=== PATIENT | female | born 1945 | race Caucasian/White ===

== ENCOUNTER 2016-12-31 10:37 | Outpatient (CLI) | payer MEDICARE ==
[2016-12-31] VITALS (22 sets, daily range): BP systolic 91–154; BP diastolic 46–84; PULSE 81–93; RESP 10–20; TEMP 97.5–98.2; O2SAT 89–100; Ht 152.4 cm; Wt 71.0 kg
[~2016-12-31] VITALS: Ht 152.4 cm; Wt 71.0 kg
[~2016-12-31 10:37] MED LIST: ALPR0.5T8 PO; ANTI1CAP5 PO; BISO1TAB4 PO; DULO60CA56 PO; DiphenhydrAMINE 50 MG/ML INJECTION IV ONE; FLUT1AER ORAL INH; FURO40TA5 PO; HYDR-3995 PO; LANS30CA58 PO; NITR100C9 PO; NORMAL SALINE 1,000 ML IV ONE; PIOG30TA2 PO; QUIN324C PO; SPIR50TA3 PO; TIOT18CA3 INH
--- NOTE | 2016-12-31 11:03 | NUR ---
ADMIT PT ADMITTED TO ROOM 124 AT THIS TIME VIA AMBULATORY STATUS. PT REPOSITIONED SELF TO A DANGLING POSITION ON THE SIDE OF THE BED DUE TO CYST ON SPINAL CORD CAUSING SCIATIC NERVE PAIN. PT ALERT AND ORIENTED. VITAL SIGNS STABLE ON ROOM AIR. ESTELLA PRESENT UPON ADMIT. WILL CONTINUE TO MONITOR.
[2016-12-31 11:57] LABS: BASOPHILS % (AUTO) 0.4 % (0-2); EOSINOPHILS # (AUTO) 0.1 T/MM3 (0-0.5); EOSINOPHILS % (AUTO) 1.3 % (0-4); HCT - HEMATOCRIT 44.2 % (36-46); HGB - HEMOGLOBIN 14.7 GM/DL (12-16); IMMATURE GRANULOCYTE # (AUTO) 0.01 T/MM3 (0.00-0.03); IMMATURE GRANULOCYTE % (AUTO) 0.1 % (0.0-0.5); LYMPHOCYTES # (AUTO) 1.7 T/MM3 (1-4.8); LYMPHOCYTES % (AUTO) 19.2 % (23-45); MEAN CORPUSCULAR HGB 28.6 UUG (26-34); MEAN CORPUSCULAR HGB CONC(MCHC 33.3 GM/DL (31-37); MEAN PLATELET VOLUME 11.2 UM3 (9.4-12.4); MONOCYTES # (AUTO) 1.1 T/MM3 (0-0.8); MONOCYTES % (AUTO) 12.1 % (0-9.0); NEUTROPHILS % (AUTO) 66.9 % (33-66); RED BLOOD COUNT 5.14 M/MM3 (4.00-5.20)
[2016-12-31 12:02] LABS: INR 0.96 (0.76-1.04); PROTHROMBIN TIME 10.5 SEC (9.31-12.49)
[2016-12-31 12:07] LABS: ALBUMIN 4.3 G/DL (3.5-5.0); ALBUMIN/GLOBULIN RATIO 1.5 RATIO (1.1-2.2); ALKALINE PHOSPHATASE 131 U/L (38-126); ALT (SGPT) 32 U/L (9-52); ANION GAP 10 MEQ/L (5-15); AST (SGOT) 42 U/L (14-36); BUN/CREATININE RATIO 23 RATIO (6-26); CALCIUM 11.6 MG/DL (8.4-10.2); CHLORIDE 99 MEQ/L (98-107); CO2 - CARBON DIOXIDE 27 MEQ/L (22-30); CREATININE 1.2 MG/DL (0.7-1.2); GLOMERULAR FILTRATION RATE 44; GLUCOSE 125 MG/DL (65-110); POTASSIUM 4.4 MEQ/L (3.6-5); SODIUM 136 MEQ/L (134-144); TOTAL PROTEIN 7.2 G/DL (6.3-8.2)
[2016-12-31] MEDS ORDERED: ASPI81TA2 PO (12:09)
[2016-12-31] MEDS ORDERED: LORAZEPAM 2 MG/ML INJECTION IV ONE (13:15)
[2016-12-31] MEDS ORDERED: KETOROLAC 30mg/ml INJECTION IV ONE (13:30)
[2016-12-31] MEDS ORDERED: PROPOFOL 500mg 50 ML IV ONE (14:36)
--- NOTE | 2016-12-31 14:58 | NUR ---
DANA CORTEZ VISITED PT. CM EXPLAINED ROLE A ND PROVIDED CONTACT INFORMATION. PT DENIES NEEDS. PT PLANS [place] [facility] [place] IS AWARE TO CONTACT CM IF NEEDS ARISE.
--- NOTE | 2016-12-31 15:00 | NUR ---
TO HAND CIGAR MAKING SUPERVISOR PATIENT TAKEN TO HAND CIGAR MAKING SUPERVISOR AT THIS TIME VIA CART AND HAND CIGAR MAKING SUPERVISOR STAFF. PATIENT STABLE AND ON ROOM AIR AT THIS TIME. BP CUFF, CONSENT, AND CHART TAKEN WITH PATIENT. PT VOIDED PRIOR TO BEING TAKEN TO HAND CIGAR MAKING SUPERVISOR. WILL CONTINUE TO MONITOR.
[2016-12-31] MEDS ORDERED: KETAMINE 500mg/10ml INJECTION IV ONE (15:01)
[2016-12-31] MEDS ORDERED: NITROGLYCERIN 50mg/10ml INJECTION IV ONE (15:05)
[2016-12-31] MEDS ORDERED: VERAPAMIL 5mg/2ml INJECTION IV ONE (15:05)
[2016-12-31] MEDS ORDERED: FENTANYL 100mcg/2ml INJECTION ONE (15:14)
[2016-12-31] MEDS ORDERED: LIDOCAINE 1% (10mg/ml) 30ml SDV ONE (15:24)
[2016-12-31] MEDS ORDERED: HEPARIN 1,000units in NS 500ml BAG IV ONE (15:24)
[2016-12-31] MEDS ORDERED: METOCLOPRAMIDE 10mg/2ml INJECTION IV PRN (16:00)
[2016-12-31] MEDS ORDERED: BISACODYL 5 MG E.C. TABLET PO PRN (16:00)
[2016-12-31] MEDS ORDERED: BISACODYL 10 MG SUPPOSITORY RECTALLY PRN (16:00)
[2016-12-31] MEDS ORDERED: LORAZEPAM 2 MG/ML INJECTION IV PRN (16:00)
[2016-12-31] MEDS ORDERED: ONDANSETRON 4mg/2ml INJECTION IV PRN (16:00)
[2016-12-31] MEDS ORDERED: MILK OF MAGNESIA 30 ML SUSP PO PRN (16:00)
[2016-12-31] MEDS ORDERED: MORPHINE SULFATE 4 MG SYRINGE IV PRN ×2 (16:00)
[2016-12-31] MEDS ORDERED: ACETAMINOPHEN 325 MG TABLET PO PRN (16:00)
[2016-12-31] MEDS ORDERED: LORAZEPAM 1 MG TABLET PO PRN (16:00)
[2016-12-31] MEDS ORDERED: HYDROCODONE/APAP 5 mg/325 mg TABLET PO PRN (16:00)
[2016-12-31] MEDS ORDERED: MAG-AL + SIM LIQUID 30 ML UDC PO PRN (16:00)
[2016-12-31] MEDS ORDERED: ATROPINE 1 MG/ML VIAL IV PRN (16:00)
[2016-12-31] MEDS ORDERED: PROMETHAZINE 25 MG INJECTION IV PRN (16:00)
[2016-12-31] MEDS ORDERED: NITROGLYCERIN 0.4 MG SUBLINGUAL TABLET SL PRN (16:00)
--- NOTE | 2016-12-31 16:02 | ANESPO ---
Post-Op Note Date 12/31/16 Time: 16:02 Status Pt Participated in Evaluation: Pt participated in person Vital Signs Date Time Temp Pulse Resp B/P Pulse Ox O2 Delivery O2 Flow Rate FiO2 12/31/16 11:35 86 18 12/31/16 11:12 97.5 110/71 98 Room Air Respiratory Function: Airway patent, Regular respirations Cardiovascular Function: Regular pulse Telemetry Pattern: SR Mental Status: Alert/oriented Pain Level Intensity: 0 Unable to Assess Pain Due To: Pt Sleeping Hydration: IV infusing Complications during Recovery None apparent Follow-Up Instructions Instructions Per Surgeon EMANUEL FISH CRNA Dec 31, 2016 16:02
--- NOTE | 2016-12-31 16:35 | NUR ---
RETURN PT RETURNED TO ROOM 124 AT THIS TIME VIA CART. PT TRANSFERRED FROM CART TO BED BY SLIDE BOARD AND ASSIST X3. PT REMAINS FLAT IN BED WITH RIGHT LEG STRAIGHT AND IMMOBILE. PRESENT UPON RETURN. PT AWAKE AND ORIENTED. VITAL SIGNS STABLE ON ROOM AIR. WILL CONTINUE TO MONITOR.
--- NOTE | 2016-12-31 20:30 | NUR ---
DISMISSAL ASSISTED TO AMBULATE AFTER BEDREST. TOLERATED WELL. RIGHT GROIN SITE SOFT WITHOUT SIGNS OF HEMATOMA POST AMBULATION. PATIENT MET DISCHARGE CRITERIA. ORAL AND WRITTEN DISCHARGE INSTRUCTIONS PROVIDED. PATIENT VERBALIZES UNDERSTANDING. IVL DC'D INTACT. DISCHARGED TO HOME VIA FRONT ENTRANCE WITH PERSONAL BELONGINGS. PATIENT DRIVEN BY SPOUSE.
--- NOTE | 2017-01-01 07:32 | CVPROF ---
CARDIAC CATHETERIZATION REPORT DATE OF PROCEDURE December 31, [address] Mik Can The patient is a pleasant 71-year-old lady who was scheduled to undergo orthopedic surgery and had severely abnormal EKG with deep T-wave inversions in anterolateral leads which was relatively new compared to 2-3 weeks a ago and was not able to lie down for stress testing due to severe back pain and therefore was referred for further evaluation by cardiac catheterization and possible intervention under sedation provided by Anesthesia. Informed consent was obtained after explaining the procedure and the potential risks to the patient who agreed to proceed with the procedure. PROCEDURE 1. Left heart catheterization. 2. Coronary angiography. 3. Left ventriculography. 4. Bypass angiography. 5. Selective ORTIZ angiography. 6. Right femoral angiography to visualize the vessel for closure device. 7. Successful Mynx deployment for hemostasis. TECHNIQUE The patient was prepped and draped in the usual sterile techniques. Conscious sedation was performed by Anesthesia. 1% lidocaine was used for local anesthesia. Using modified Seldinger technique, arterial access was obtained into the right femoral artery with placement of a 6-Bulgarian arterial sheath. LEFT VENTRICULOGRAPHY Left ventriculography in single-plane GOLDSTEIN shallow projection showed normal LV systolic function with ejection fraction of about 65% with no mitral regurgitation or gradient across the aortic valve. LVEDP was about 26. CORONARY ANGIOGRAPHY Left main had distal 80% stenosis. Left anterior descending artery had minor irregularities distally. Diagonal artery was free of significant lesions and small. Left circumflex artery had competitive flow coming from a graft. Right coronary artery had about 20-30% stenosis. ORTIZ to LAD was patent. 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 A vein graft to obtuse marginal was patent with about 20-30% stenosis. Right femoral angiography showed patent common femoral, proximal SFA and profunda and therefore Mynx was used for hemostasis. IMPRESSION 1. Normal LV systolic function with ejection fraction of 65%. 2. Elevated LV end-diastolic pressure. 3. Coronary artery disease as described above. 4. Successful Mynx deployment for hemostasis. 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 At some point in the future after the surgery, one might consider percutaneous intervention of the left main to improve blood flow into the distal LAD. LUI
== END 2016-12-31 20:30 | disposition home or self-care (01) ==
LOC: CATH 10:37 → SRG 10:40 → CATH 20:30
PROVIDERS: ATTEND Internal Medicine Cardiovascular Disease
DX: Z01.810 Encounter for preprocedural cardiovascular examination (principal); I25.10 Atherosclerotic heart disease of native coronary artery without angina pectoris; R94.31 Abnormal electrocardiogram [ECG] [EKG]
CPT/HCPCS: 80053; 85025; 85610; 93005; 93459; A9270; C1760; C1887; C1893; J1644; J1885; J2060; J3010; J7030; Q9967; 93458